=== PATIENT | male | born 1950 | race Caucasian/White ===

== ENCOUNTER 2020-02-25 10:58 | Outpatient (CLI) | payer MEDICARE ==
--- NOTE | 2020-02-25 17:00 | MRI ---
EXAM: RIGHT WRIST MRI WITHOUT IV CONTRAST: 02/25/20 HISTORY: Pain following injury. Closed nondisplaced fracture triquetrum. COMPARISON: Plain x-ray, 02/15/20. FINDINGS: There are numerous tendon sheaths with fluid density including the extensor carpi radius tendons, ext ensor pollicis longus tendon and numerous flexor tendons, evidence for nonspecific tenosynovitis. The extensor carpi ulnaris tendon is markedly thickened and there is abnormal increased signal with an a ppearance of severe tendinopathy and probable interstitial tearing with some associated tenosynovitis as well. The lunate bone is markedly sclerotic and has some interosseous cystic changes and appears to be fragmented with a dorsally displaced fragment probably related to avascular necrosis. There is some sclerosis within the medial tip of the scaphoid bone and interosseous cystic change with some ad jacent marrow edema. there is fairly extensive abnormal marrow edema involving the distal medial aspe ct of the triquetrum bone with an appearance evidence for a probable chip type fracture. There is melita e minimal nonspecific soft tissue swelling around the mid carpal level evidence for nonspecific synov itis. The region of the scapholunate ligament appears to be poorly defined, certainly concerning for the possibility of tear. Additionally the central TFC appears to be markedly thin with possible small punctate full thickness perforation with some fluid within the distal radioulnar joint. IMPRESSION: Prominent abnormal edema involving the distal medial aspect of the triquetrum bone certainly concerni ng for the possibility of a small fracture. Marked abnormal thickening of the extensor carpi ulnaris tendon. Evidence for tendinopathy with probable associated interstitial tearing and tendon sheath flu id with associated tenosynovitis. Patchy areas of marrow edema involving multiple carpal bones includ ing the medial proximal scaphoid bone as well as the tip of the ulnar styloid process, nonspecific, p ossibly stress related. Multiple subcortical cystic changes including the distal radius, scaphoid bon e, lunate bone, base of the third metacarpal with some generalized articular cartilage loss. Evidence for osteoarthrosis change with some associated periarticular increased soft tissue swelling evidence for nonspecific synovitis. Multiple tendon sheath fluid both dorsally and ventrally. Evidence for nonspecific tenosynovitis. Fra gmented abnormal appearance to the lunate bone worrisome for avascular necrosis and associated fragme ntation with probable disrupted scapholunate ligament. Other findings as above. POS: RRE
== END 2020-02-25 10:59 | disposition home or self-care (01) ==
LOC: SCSMRI 10:58
PROVIDERS: ATTEND Orthopaedic Surgery Hand Surgery
DX: S62.114A Nondisplaced fracture of triquetrum [cuneiform] bone, right wrist, initial encounter for closed fracture (principal); M19.90 Unspecified osteoarthritis, unspecified site; R93.7 Abnormal findings on diagnostic imaging of other parts of musculoskeletal system; M65.9 Synovitis and tenosynovitis, unspecified